=== PATIENT | female | born 1950 | race African-American/Black ===

== ENCOUNTER → 2018-08-04 | Outpatient (CLI) | payer OTHER ==
[~2018-08-04] MED LIST: PRINIVIL40 MG PO; TOPROL XL100 MG PO
--- NOTE | ~2018-08-04 | P ---
[facility] [place] [address] PROCEDURE REPORT Name: LLUVIA HADDAD Room #: REG [facility]#: [id number] Admission: 08/04/18 Attend Phys: Michael Toure MD Discharge: Date of : 50 Report #: [id number] THIS REPORT FOR: //name// CC: GWENDOLYN Toure BRIEF HISTORY: The patient is a 68-year-old woman with a history of colon polyps remotely. It has been at least 10 years since she has had a colonoscopy. That report is not available at this time. PREOPERATIVE DIAGNOSES: 1. High risk screening colonoscopy. 2. History of colon polyps. POSTOPERATIVE DIAGNOSES: Small internal hemorrhoids. MEDICATIONS: Deep sedation with propofol per anesthesia. SPECIMEN: None. ESTIMATED BLOOD LOSS: None. PROCEDURE: Colonoscopy to cecum and terminal ileum. FINDINGS: Prior to propofol sedation, procedure of colonoscopy discussed with the patient as well as potential risks and its complications. She indicates she understands and desires to proceed. DESCRIPTION OF PROCEDURE: With the patient in left lateral decubitus position, digital examination was completed, which revealed no abnormalities. Subsequently, the Olympus video colonoscope was introduced in the rectum, advanced under direct vision to the cecum. Done with minimal difficulty, the cecum was identified by the ileocecal valve and the appendiceal orifice. I was able to visualize the distal segment of the terminal ileum, which was inspected and noted to be unremarkable. At that point, the scope was slowly withdrawn and careful circumferential views were obtained. Upon slow withdrawal of the scope, the prep was excellent. Mucosa was within normal limits, normal vascular pattern, normal light reflex. As we withdrew the scope, no neoplastic lesions were seen. Examination of the entire colon revealed normal mucosa throughout. No polyps were seen. The scope was withdrawn in the rectum and no abnormalities were seen. Upon retroflexion, very small hemorrhoids were seen. Scope was withdrawn. The patient tolerated the procedure well. CONDITION OF THE PATIENT UPON DISCHARGE: Following procedure, the patient drowsy, aroused, conversant and will be discharged to home when fully ambulatory. [facility] [address] [place] [address] PROCEDURE REPORT Name: LLUVIA HADDAD Room #: REG [facility]#: [id number] Admission: 08/04/18 Attend Phys: Michael Toure MD Discharge: Date of : 50 Report #: [id number] INSTRUCTIONS TO THE PATIENT AND FAMILY AT THE TIME OF DISCHARGE: No neoplastic lesions were seen. She has a prior history of colon polyps, but on screening today, no polyps were seen. Suggest return in 10 years for her next colonoscopy since no lesions were seen today. Last colonoscopy was more than 10 years ago. Withdrawal time from the cecum was 10 minutes 33 seconds. By: 0844 1249 Michael Toure MD /nt
== END | disposition home or self-care (01) ==
LOC: GI 06:39
DX: Z12.11 Encounter for screening for malignant neoplasm of colon (principal); Z86.010 Personal history of colon polyps; K64.8 Other hemorrhoids; Z79.899 Other long term (current) drug therapy
CPT/HCPCS: 62110; 62900

== ENCOUNTER → 2018-12-01 | Outpatient (CLI) | payer OTHER ==
[~2018-12-01] VITALS: Ht 172.7 cm; Wt 92.1 kg
[~2018-12-01] MED LIST changes: +DEMADEX20 MG PO; +K-DUR 20 MEQ T20 MEQ PO; +NORCO 5-325 TA1 EAC1 PO; +ZANAFLEX4 MG PO
--- NOTE | ~2018-12-01 | HPC ---
[facility] [address] [address] PAIN MANAGEMENT CONSULTATION Name: LLUVIA HADDAD Room #: REG BIJ[facility] Amy.#: [id number] Admission: 12/01/18 ������������������ Attend Phys: Celestino Dangelo MD Discharge: ������������������ Date of : 50 Report #: [id number] THIS REPORT FOR: //name// CC: Sonya Dangelo DATE OF SERVICE: 12/01/2018 CHIEF COMPLAINT: Low back pain with radiation into the right hip and groin. HISTORY OF PRESENT ILLNESS: The patient is here today at the request of Dr. Ramos. She has severe pain, is most bothersome when she is walking. When she lays flat on her back, the pain eases. When it first began 6 months ago, it was severe and then eased for a short time and increased once again. She now finds that she cannot walk for more than just a few minutes. Five minutes is enough to cause pain. She has been given hydrocodone 5/325 to take in addition to her other medications including tizanidine and this helps for a few hours. She often times will have to take 1-1/2 tablets. She scores her pain as an 8-9/10 on a daily basis. MEDICATIONS: Metoprolol, lisinopril hydrocodone and tizanidine. ALLERGIES: None. PAST MEDICAL HISTORY: Positive for hypertension. PAST SURGICAL HISTORY: Hysterectomy over 20 years ago and she has had an arthroscopic surgery of her right knee. SOCIAL HISTORY: She denies tobacco or alcohol. She is . Her is with her today. She is retired from her job now 20 years. REVIEW OF SYSTEMS: Positive for decreased appetite and weight loss. She complains of headaches. Dyspnea on exertion, shortness of breath. She has chronic abdominal pain and has recently been experiencing nocturia. She complains of being lightheaded and dizzy. PHYSICAL EXAMINATION: GENERAL: Pleasant female. VITAL SIGNS: Blood pressure 100/73, heart rate 97, respirations 16. She is 5 feet 8 inches, 203 pounds, BMI is 30.9. She is able to independently move from sitting to standing position, but her ambulation is antalgic and she has pain obviously in her left hip. CHEST: Clear. CARDIAC: Rhythm was regular. ABDOMEN: Soft. [facility] [address] [place] [address] PAIN MANAGEMENT CONSULTATION Name: LLUVIA HADDAD Room #: REG [facility].#: [id number] Admission: 12/01/18 ������������������ Attend Phys: Celestino Dangelo MD Discharge: ������������������ Date of : 50 Report #: [id number] BACK: Examination of the spine reveals tenderness across the lumbosacral segment. Positive straight leg raise is present, which creates pain, mostly in the hip, but there is some radiation along the lateral aspect of the leg, but also into the groin consistent with hip pain. She has pain with internal and external rotation of the left hip. IMAGING STUDIES: X-rays studies available to me at this time are right hip, which is normal plain film. I do not have an MRI or CT scan of the lumbar spine, which is currently being ordered. IMPRESSION: Severe right hip pain with some radiation consistent with radiculopathy. There is some evidence also of right hip arthropathy on physical exam, although plain film x-rays are negative. RECOMMENDATIONS: I would treat this initially as a lumbar radiculopathy. This may provide diagnostic as well as therapeutic benefits. Potential risks and benefits of the procedure were discussed with the patient and she would like to proceed, but we were unable to do so due to the preauthorization requirements of her insurance. We will try to make that process happen over the next 24 hours and return her to the clinic next week for injection. Consultation time 40 minutes. ��������������������������������������������� ���������������������������������������� By: ��������������������������������������������� [id number] [id number] Celestino Dangelo MD /nt
[2018-12-01 09:28] VITALS: BP 100/73
--- NOTE | 2018-12-01 09:44 | NUR ---
Pain Clinic Assessment: 1. History of Osteoarthritis: Left Lower Extremity Right Lower Extremity History of Rheumatoid Arthritis: Not Applicable 2. Height: 5 ft. 8 in. 172.7 cm. Weight: 203.0 lb. oz. 92.080 kg. Patient's BMI: 30.9 3. Vital Signs: BP: 100/73 Pulse: 97 Resp: 16 Temp: 02 Sat: 100 ECG Mon: 4. Pain Intensity: 8 5. Fall Risk: Dizziness: Y Needs help standing or walking: N Fallen in the last 3 months: N Fall risk comments: 6. Patient on Blood Thinner: None 7. History of Hypertension: Y 8. Opioid Therapy greater than 6 weeks: Opiate Contract Signed: 9. Risk Assessment Tool Provided: 10. Functional Assessment Tool: 11. Recreational Drug Use: Never Drug Type: Tobacco Use: Never Smoker Tobacco Type: Amount or Packs/day: How Many Years: Alcohol Use: No Frequency: Quant:
== END ==
LOC: PAIN 06:43
DX: M54.5 Low back pain (principal); M25.551 Pain in right hip

== ENCOUNTER → 2018-12-05 | Outpatient (CLI) | payer OTHER ==
[~2018-12-05] VITALS: Ht 172.7 cm; Wt 92.1 kg
--- NOTE | ~2018-12-05 | HPC ---
[facility] [place] [address] PAIN MANAGEMENT CONSULTATION Name: LLUVIA HADDAD Room #: REG [facility].#: [id number] Admission: 12/05/18 ������������������ Attend Phys: Celestino Dangelo MD Discharge: ������������������ Date of : 50 Report #: [id number] THIS REPORT FOR: //name// CC: Sonya Dangelo DATE OF SERVICE: 12/05/2018 CHIEF COMPLAINT: Followup visit for lumbar radiculopathy, L1-L2 distribution. The patient returns to pain clinic today in followup. I saw her last just one week ago. She is here today for a lumbar epidural injection. She brought with her CAT scan, which I have had an opportunity to review. It shows a lateral disk protrusion at the level of the foramina on the right at L1-L2. There is also bulging of the disk at L2-L3 with mild lateral recess narrowing, although this is on the contralateral side. We discussed at last visit that she may be a good candidate for an epidural injection and I think that this would give us both diagnostic and some therapeutic benefit. I have explained the procedure to him in some detail. PHYSICAL EXAMINATION: Remains unchanged. Her blood pressure 115/77, heart rate 82, respirations 14. She is 5 feet 8 inches with a BMI of 30.9. She moves independently from sitting to standing position, ambulates without difficulty. Straight leg raising reproduces pain into the hip and groin following the L1-L2 distribution. She also has some pain with internal and external rotation of the hip raising some question of perhaps secondary pain generator. IMPRESSION: Severe right hip pain, which is consistent with an L1 radiculopathy. She may also have hip arthropathy. PLAN: Epidural steroid injection under fluoroscopic guidance. PROCEDURE: She was taken to fluoroscopic suite, placed prone, skin prepped with ChloraPrep. Skin anesthetized over the L1-L2 interspace. A 20-gauge Tuohy epidural needle advanced first attempt in the epidural space with loss of resistance technique. There was no blood or CSF aspirated. A 1 mL of Omnipaque was injected. Good spread of dye observed in the epidural space followed by 3 mL of 0.5% lidocaine mixed with 80 mg triamcinolone. She tolerated the procedure well and was observed for 45 minutes and discharged. [address] [address] PAIN MANAGEMENT CONSULTATION Name: BOOLYNDAE Rose Room #: REG [facility] Amy.#: [id number] Admission: 12/05/18 ������������������ Attend Phys: Celestino Dangelo MD Discharge: ������������������ Date of : 50 Report #: [id number] Follow up as needed. ��������������������������������������������� ���������������������������������������� By: ��������������������������������������������� 1235 0321 Celestino Dangelo MD /nt
[2018-12-05 10:19] VITALS: BP 115/77
--- NOTE | 2018-12-05 10:38 | NUR ---
Pain Clinic Assessment: 1. History of Osteoarthritis: Left Lower Extremity Right Lower Extremity History of Rheumatoid Arthritis: Not Applicable 2. Height: 5 ft. 8 in. 172.7 cm. Weight: 203.0 lb. oz. 92.080 kg. Patient's BMI: 30.9 3. Vital Signs: BP: 115/77 Pulse: 82 Resp: 14 Temp: 02 Sat: 100 ECG Mon: 4. Pain Intensity: 5 5. Fall Risk: Dizziness: N Needs help standing or walking: N Fallen in the last 3 months: N Fall risk comments: 6. Patient on Blood Thinner: None 7. History of Hypertension: Y 8. Opioid Therapy greater than 6 weeks: Opiate Contract Signed: 9. Risk Assessment Tool Provided: 10. Functional Assessment Tool: 11. Recreational Drug Use: Never Drug Type: Tobacco Use: Never Smoker Tobacco Type: Amount or Packs/day: How Many Years: Alcohol Use: No Frequency: Quant:
== END | disposition home or self-care (01) ==
LOC: PAIN 06:52
DX: M51.16 Intervertebral disc disorders with radiculopathy, lumbar region (principal); M99.73 Connective tissue and disc stenosis of intervertebral foramina of lumbar region

== ENCOUNTER 2019-02-02 08:22 | Observation (INO) | payer OTHER ==
[~2019-02-02] VITALS: Ht 172.7 cm; Wt 97.0 kg
--- NOTE | ~2019-02-02 | P ---
[facility] [place] [address] PROCEDURE REPORT Name: LLUVIA HADDAD Room #: 205-P [facility]..#: [id number] Admission: 02/02/19 Attend Phys: Tamir Estrada MD Discharge: 02/03/19 Date of : 50 Report #: [id number] THIS REPORT FOR: //name// CC: Salvador Estrada PROCEDURE: Bi-V ICD implantation PREOPERATIVE DIAGNOSIS: Nonischemic cardiomyopathy. POSTOPERATIVE DIAGNOSIS: Nonischemic cardiomyopathy. HISTORY: The patient is a 69-year-old female with a history of longstanding nonischemic cardiomyopathy, who has been on optimal medical therapy for over a year, whose EF is less than 35%. She has left bundle branch block and [employer] functional class 2-3 heart failure symptoms. She is here for Bi-V ICD implantation. ANESTHESIA: The patient underwent MAC anesthesia with no anesthesia related complications. DESCRIPTION OF PROCEDURE: The patient underwent informed consent. We discussed the details of the procedure including the risk, which include, but not limited to bleeding, infection, vascular damage, cardiac perforation, pneumothorax. She understood these risks and is willing to proceed. The patient was brought to the EP laboratory in fasting and sedated state, prepped and draped in sterile fashion and underwent venography showing patency of the left axillary vein. She received IV antibiotics for the antibiotic prophylaxis. Next, lidocaine was injected below the level of left clavicle, incision was made, pocket was created over the prepectoral fascia. Access was obtained twice to left axillary vein using extrathoracic approach. Sheaths were positioned using the modified Seldinger technique. Access obtained to the left axillary vein x 3. Next, leads were positioned in the right ventricular apex and right atrial appendage both with adequate pacing and sensing thresholds. These were sutured to the prepectoral fascia using Ethibond. Next, a guide sheath was placed into the right atrium and I was able to access the coronary sinus. Of note, this coronary sinus had a very poor posterior, lateral and anterior lateral branches. I attempted to place leads into a couple of these anterolateral branch, but this was unsuccessful. Therefore, I pulled my sheath back and I was able to perform double wire technique to get into the middle cardiac vein. The patient had 2 branches. There was a distal branch where I placed the lead, but there was significant phrenic nerve capture and therefore, I pulled back into a more proximal branch and the distal part of the lead actually had it basally. From this location, we had great pacing and sensing thresholds. There was still some phrenic nerve capture, but phrenic nerve capture was at high volts and the patient had very low pacing thresholds at this [facility] [address] [place] [address] PROCEDURE REPORT Name: LLUIVA HADDAD Room #: 205-P [facility] Gwendolyn Roger#: [id number] Admission: 02/02/19 Attend Phys: Tamir Estrada MD Discharge: 02/03/19 Date of : 50 Report #: [id number] site. Therefore, this was utilized as our final destination for the lead. The sheath was split, lead was sutured to the prepectoral fascia, then the device was connected, placed in the pocket. Pocket was irrigated with vancomycin. Pocket was closed in 2 layers and surgical glue was placed to the outer skin layer. The patient awoke neurologically and hemodynamically intact. No complications and no significant bleeding. The implanted device was a [employer], model # [id number], serial #[id number]. Atrial lead was [employer], model #2088TC, 52 cm, serial #[id number]. The ICD lead was a 7122Q, 58 cm, serial #[id number]. The LV lead was a [employer], model #1458, 86 cm, serial #[id number]. Atrial lead demonstrated P-wave 2.2 millivolts, pacing impedance 430 ohms, pacing threshold 0.75 volts at 0.5 milliseconds. The RV lead demonstrated R-wave of 11.8 millivolts, pacing impedance of 550 ohms, pacing threshold 0.5 volts at 0.5 milliseconds. The LV lead demonstrated a pacing impedance of 810 ohms, pacing threshold 0.75 volts at 0.5 milliseconds. The device was programmed to the DDDR 60-130 mode. The VT zone was set at 180-220 beats per minute with 3 rounds of burst followed by 3 rounds of ramp followed by max output shocks. The VF zone was set at greater than 220 beats per minute with ATP while charging followed by max output shocks. CONCLUSION: Successful biventricular ICD implantation. By: 1405 [id number] Tamir Estrada MD /nt
[2019-02-02 09:22] VITALS: BP 141/73
[2019-02-02 09:42] LABS: HEMATOCRIT 34.9 % (37.0-47.0); HEMOGLOBIN 11.6 gm/dL (12.0-15.0); MCH 28.4 pg (26.0-34.0); MCHC 33.3 g/dL (28.0-37.0); MCV 85.2 fL (80.0-100.0); RBC 4.1 mil/uL (4.20-5.00); RDW 15.1 % (10.5-14.5)
[2019-02-02 09:59] LABS: CALCIUM 10.1 mg/dL (8.5-10.1)
[2019-02-02 10:44] LABS: APTT 25.4 Seconds (24.5-32.8); PROTIME 10.7 Seconds (9.3-11.4)
--- NOTE | 2019-02-02 14:58 | NUR ---
REC PT FROM PACU, ORDERS REC OVER THE PHONE VIA [employer]Y CELL [employer]SEMBLY SUPERVISOR, THEN ORDERS ACK IN [facility]. PT TO BE HOB UP FOR SIX HOURS, SO WE'LL DO SIX HOURS FROM RECEIPT OF PT, NO C/O PAIN AT THIS TIME NOR NAUSEA. PT IS A&0X4, VERY LETHARGIC, ICD SITE W/OLD BLOOD DRIED UPON IT, CARDIAC MONITORING, UNHOOKED PACU'S TELE BOX, REMOVED IVF, WILL ENTER MEDS GIVEN BY MANNY CHILDRESS. SHOWED PT HOW TO USE CALL LIGHT, GENTLE REMINDER RE: IMMOBILIZER AND RESTRICTIONS, PT ACKNOWLEDGES. VS SET UP FOR EVERY 15 MIN, ENCOURAGED PT TO USE CALL LIGHT FOR ANY NEEDS AND IS NEAR HER RIGHT HAND.
[2019-02-02 15:00] VITALS: BP 133/84
[2019-02-02 15:15] VITALS: BP 117/96
[2019-02-02] MEDS ORDERED: TYLENOL325 MG PO (15:39)
[2019-02-02 19:48] VITALS: BP 112/60
[2019-02-02 23:44] VITALS: BP 140/83
[2019-02-03 03:24] VITALS: BP 142/90
--- NOTE | 2019-02-03 03:50 | NUR ---
ASSESSMENTS CHARTED. PATIENT HAD SCRATCHED A SPOT RAW ALONG THE GLUED INCISION LINE. REINFORCED WITH GAUZE DRESSING. STANDBY ASSIST TO TOLIET DUE TO IMMOBILIZER BEING INPLACE. SUPPORTED LEFT ARM WITH PILLOWS. PATIENT SLEPT THROUGH THE NIGHT. FALL PRECAUTIONS IN PLACE. PLAN OF CARE IS TO GO HOME IN AM.
[2019-02-03 07:10] VITALS: BP 133/83
--- NOTE | 2019-02-03 07:31 | NUR ---
ASSUMED CARE OF PT APPROX 0715, A&0X4, REPORTS OF PT SCRATCHING HER CHEST IN THE NIGHT AND SITE BLED, NURSE STATES SHE PLACED GAUZE. NOTED B/P YESTERDAY UPON ADMIT WAS WNL, AT 0324 140S/90S. DISCHARGE NOTED. PASSSED INFO ON TO PHYSICIAN CONCERNING ABOVE. CLOSE SBA TO BSC, HAS CHRONIC PAIN LOWER BACK AND VISITS PAIN CLINIC. ENCOURAGED PT TO USE CALL LIGHT FOR ANY NEEDS
[2019-02-03 11:11] VITALS: BP 141/71
[2019-02-03 12:23] VITALS: BP 133/83
== END 2019-02-03 12:54 | disposition home or self-care (01) ==
LOC: SPEC 08:22 → CATH 08:22 → 2N 14:47 → CATH 14:51 → ENTRNSPT 02-03 12:40 → EDTRNSPTSTS 02-03 12:42 → 2N 02-03 12:54
PROVIDERS: ADMIT Internal Medicine Cardiovascular Disease
DX: I42.0 Dilated cardiomyopathy (principal); I44.7 Left bundle-branch block, unspecified; I10 Essential (primary) hypertension; R06.02 Shortness of breath; Z79.899 Other long term (current) drug therapy

== ENCOUNTER → 2019-02-16 | Outpatient (CLI) | payer OTHER ==
[~2019-02-16] MED LIST changes: +TYLENOL325 MG PO
== END ==
LOC: RAD 11:06
DX: T82.110A Breakdown (mechanical) of cardiac electrode, initial encounter (principal); Y83.8 Other surgical procedures as the cause of abnormal reaction of the patient, or of later complication, without mention of misadventure at the time of the procedure; Y92.89 Other specified places as the place of occurrence of the external cause

== ENCOUNTER → 2019-11-07 | Outpatient (CLI) | payer MEDICARE | LOC: SJCVCIMAG 08:51 | PROVIDERS: ATTEND Internal Medicine Cardiovascular Disease | DX: Z45.02 Encounter for adjustment and management of automatic implantable cardiac defibrillator (principal); R94.31 Abnormal electrocardiogram [ECG] [EKG]; I08.1 Rheumatic disorders of both mitral and tricuspid valves; I11.9 Hypertensive heart disease without heart failure; I42.0 Dilated cardiomyopathy; I44.7 Left bundle-branch block, unspecified; I47.2 Ventricular tachycardia; I47.1 Supraventricular tachycardia; Z90.710 Acquired absence of both cervix and uterus; Z79.899 Other long term (current) drug therapy ==

== ENCOUNTER → 2019-11-17 | Outpatient (CLI) | payer MEDICARE | LOC: RAD 14:37 | DX: M47.816 Spondylosis without myelopathy or radiculopathy, lumbar region (principal); R05 Cough ==

== ENCOUNTER → 2020-02-13 | Outpatient (CLI) | payer MEDICARE | LOC: SJCVC 10:55 | PROVIDERS: ATTEND Internal Medicine Cardiovascular Disease | DX: Z45.02 Encounter for adjustment and management of automatic implantable cardiac defibrillator (principal); R94.31 Abnormal electrocardiogram [ECG] [EKG]; I47.1 Supraventricular tachycardia; I11.0 Hypertensive heart disease with heart failure; I50.20 Unspecified systolic (congestive) heart failure; I42.8 Other cardiomyopathies; Z95.810 Presence of automatic (implantable) cardiac defibrillator; Z79.899 Other long term (current) drug therapy ==

== ENCOUNTER → 2020-02-15 | Outpatient (CLI) | payer MEDICARE | LOC: MRI 12:35 | DX: M51.16 Intervertebral disc disorders with radiculopathy, lumbar region (principal); M47.27 Other spondylosis with radiculopathy, lumbosacral region; M48.07 Spinal stenosis, lumbosacral region ==

== ENCOUNTER → 2020-02-27 | Outpatient (CLI) | payer MEDICARE ==
[~2020-02-27] MED LIST changes: +LOSARTAN-HCTZ1 EAC3 PO; +MELOXICAM7.5 MG PO; +UNICOMPLEX M TA1 TA1 PO
== END ==
LOC: LAB 08:00
PROVIDERS: ATTEND Internal Medicine Cardiovascular Disease
DX: Z01.812 Encounter for preprocedural laboratory examination (principal); Z20.828 Contact with and (suspected) exposure to other viral communicable diseases

== ENCOUNTER → 2020-03-01 | Outpatient (CLI) | payer MEDICARE ==
[~2020-03-01] VITALS: Ht 172.7 cm; Wt 108.9 kg
--- NOTE | ~2020-03-01 | P ---
[facility] Laureano [place] [address] PROCEDURE REPORT Name: LLUVIA HADDAD Room #: REG [facility]#: [id number] Admission: 03/01/20 Attend Phys: Tamir Estrada MD Discharge: Date of : 50 Report #: [id number] THIS REPORT FOR: cc: Salvador De Oliveira MD, Kirk D. MD Couchonnal, Luis F. MD ~ CC: Salvador Estrada EP STUDY PREOPERATIVE DIAGNOSIS: Supraventricular tachycardia. POSTOPERATIVE DIAGNOSIS: Supraventricular tachycardia. PROCEDURES PERFORMED: 1. Comprehensive EP study, CPT code 81159. 2. EP with left atrial pacing and recording, CPT code 68506. 3. Program stimulation pacing after IV drug infusion, CPT code 74600. 4. Pre-procedural ICD reprogramming, CPT code 49529. 5. Post-procedural ICD reprogramming, CPT code 88074. HISTORY: The patient is a 70-year-old female with a history of prior ICD implantation, who recently has had episodes of what appears to be SVT on her device. She is here for EP study and possible ablation. ANESTHESIA: The patient underwent MAC anesthesia with no anesthesia related complications. DESCRIPTION OF PROCEDURE: The patient underwent informed consent. We discussed the details of the procedure including the risks, which include but not limited to bleeding, infection, vascular damage, cardiac perforation. She understood these risks and is willing to proceed. The patient was brought to EP laboratory in fasting and sedated state, prepped and draped in a sterile fashion. I obtained access to the bilateral femoral veins placing an 8 and 6-Afghan short sheath in the right femoral vein, 6 and 7-Afghan short sheath in the left femoral vein. Under fluoroscopy, I placed 3 quadripolar catheters at the HRA, His and RV positions and decapolar catheter placed in the coronary sinus for left atrial pacing and recording. At baseline, the patient was in sinus rhythm, sinus cycle length of 645 milliseconds, AZ interval 165 milliseconds, QRS duration 154 milliseconds, QT interval 420 milliseconds, AH interval 100 milliseconds, HV interval 50 milliseconds. Of note, I did program her defibrillator prior to initiation of the procedure to turn off therapies. Atrial burst pacing was performed and AV block was noted at 340 milliseconds. Atrial ERP is noted 250 milliseconds at [facility] [address] [place] [address] PROCEDURE REPORT Name: LLUVIA HADDAD Room #: REG [facility]#: [id number] Admission: 03/01/20 Attend Phys: Tamir Esrtada MD Discharge: Date of : 50 Report #: [id number] [address] cycle length. Double atrial extrastimuli were delivered and no SVT was induced. At baseline, there was no evidence of VA conduction. Ventricular stimulation was then performed at 2 cycle lengths, 500, 400 milliseconds and no VT or ventricular fibrillation was initiated. Isoproterenol infusion was started at 2 mcg per minute. AV block was noted to be less than 230 milliseconds. AV jose ERP was noted at 230 milliseconds at [address] cycle length. No SVT could be induced. Again, ventricular pacing was performed and there was no evidence of VA conduction. Isoproterenol was increased to 4 mcg per minute. Again, aggressive atrial and ventricular pacing maneuvers were performed and no SVT was induced. The patient did go into AFib once requiring a 200-joule cardioversion. Isoproterenol was turned off and I continued performing testing and no SVT was induced. As such, the procedure was concluded. Catheters and sheaths were pulled and hemostasis obtained and the patient's defibrillator was tested and found to be functioning normally and was programmed to its nominal settings. CONCLUSIONS: 1. Normal SA jose function. 2. Normal AV jose function. 3. Normal His-Purkinje function. 4. No inducible SVT on or off isoproterenol. 5. No ventricular tachycardia induced with ventricular stimulation. By: 1407 1435 Tamir Estrada MD /nt
[2020-03-01 07:13] VITALS: BP 137/83
[2020-03-01 07:52] LABS: ABSOLUTE NEUTROPHILS 2.9 thou/uL (1.4-8.2); BASOPHILS 0.3 % (0.0-2.0); EOSINOPHILS 1.2 % (0.0-3.0); HEMATOCRIT 34.9 % (37.0-47.0); HEMOGLOBIN 11.9 gm/dL (12.0-15.0); LYMPHOCYTES 40.3 % (24.0-44.0); MCHC 34.1 g/dL (28.0-37.0); MCV 84.9 fL (80.0-100.0); MONOCYTES 10.2 % (1.0-8.0); PLATELET COUNT 241 thou/uL (150-400); RBC 4.11 mil/uL (4.20-5.00); RDW 14.5 % (10.5-14.5)
[2020-03-01 07:56] LABS: CALCIUM 9.4 mg/dL (8.5-10.1); CREATININE 0.8 mg/dL (0.6-1.0); POTASSIUM 3.6 mmol/L (3.5-5.1)
[2020-03-01 08:00] LABS: APTT 25.6 Seconds (24.5-32.8); PROTIME 9.9 Seconds (9.3-11.4)
== END | disposition home or self-care (01) ==
LOC: CATH 06:37
PROVIDERS: ATTEND Internal Medicine Cardiovascular Disease
DX: I47.1 Supraventricular tachycardia (principal); I10 Essential (primary) hypertension; E78.5 Hyperlipidemia, unspecified; I42.9 Cardiomyopathy, unspecified; Z90.711 Acquired absence of uterus with remaining cervical stump; Z98.890 Other specified postprocedural states; Z79.899 Other long term (current) drug therapy; Z95.810 Presence of automatic (implantable) cardiac defibrillator; Z79.01 Long term (current) use of anticoagulants
CPT/HCPCS: 62110; 62900; 70005

== ENCOUNTER → 2020-11-06 | Outpatient (CLI) | payer MEDICARE | LOC: SJCVC 13:06 | PROVIDERS: ATTEND Internal Medicine Cardiovascular Disease | DX: I42.0 Dilated cardiomyopathy (principal); I47.1 Supraventricular tachycardia; I44.7 Left bundle-branch block, unspecified; I34.0 Nonrheumatic mitral (valve) insufficiency; E78.5 Hyperlipidemia, unspecified; J90 Pleural effusion, not elsewhere classified; Z79.899 Other long term (current) drug therapy; Z95.0 Presence of cardiac pacemaker ==

== ENCOUNTER → 2021-04-24 | Outpatient (CLI) | payer MEDICARE | LOC: SJCVC 13:21 | PROVIDERS: ATTEND Internal Medicine Cardiovascular Disease | DX: I42.0 Dilated cardiomyopathy (principal); I47.1 Supraventricular tachycardia; E78.5 Hyperlipidemia, unspecified; I10 Essential (primary) hypertension; Z95.810 Presence of automatic (implantable) cardiac defibrillator; Z79.899 Other long term (current) drug therapy ==

== ENCOUNTER → 2021-05-07 | Outpatient (CLI) | payer MEDICARE | LOC: SJCVCIMAG 09:30 | PROVIDERS: ATTEND Internal Medicine Cardiovascular Disease | DX: I08.1 Rheumatic disorders of both mitral and tricuspid valves (principal); I42.8 Other cardiomyopathies; I10 Essential (primary) hypertension; E78.5 Hyperlipidemia, unspecified; I42.0 Dilated cardiomyopathy; R00.0 Tachycardia, unspecified; I44.7 Left bundle-branch block, unspecified; Z95.0 Presence of cardiac pacemaker; Z79.899 Other long term (current) drug therapy ==